=== PATIENT | male | born 1965 | race African-American/Black ===

== ENCOUNTER 2016-11-14 12:23 | Outpatient (CLI) ==
--- NOTE | 2016-11-15 08:07 | DI ---
EXAM: Views of the left foot. HISTORY: Back, pressure ulcer on left foot TECHNIQUE: AP lateral, oblique views of the left foot were obtained. Comparison 06/06/2016. FINDINGS: No definite lytic destructive processes are seen. There is stable appearance of amputati ons of the first, second, third and fourth digits. IMPRESSION: No definite signs of osteomyelitis.
== END 2016-11-14 12:24 | disposition home or self-care (01) ==
LOC: RAD 12:23
PROVIDERS: ATTEND Surgery Plastic and Reconstructive Surgery
DX: L97.522 Non-pressure chronic ulcer of other part of left foot with fat layer exposed (principal); E11.621 Type 2 diabetes mellitus with foot ulcer; M86.8X7 Other osteomyelitis, ankle and foot

== ENCOUNTER 2016-12-20 11:51 | Outpatient (CLI) ==
[2016-12-20 12:32] LABS: BASOPHILS # (AUTO) 0.1 K/uL (0-0.2); BASOPHILS % (AUTO) 0.6 % (0.0-3.0); EOSINOPHILS # (AUTO) 0.4 K/ul (0.0-0.7); EOSINOPHILS % (AUTO) 5.1 % (0.0-7.0); HEMATOCRIT 44.7 % (42.0-52.0); HEMOGLOBIN 14.6 g/dl (14.0-18.0); IMMATURE GRANULOCYTE % (AUTO) 0.4 % (0.0-5.0); LYMPHOCYTES # (AUTO) 3.1 K/uL (0.60-3.4); LYMPHOCYTES % (AUTO) 37.2 (10.0-50.0); MEAN CORPUSCULAR HEMOGLOBIN 26.9 pg (27.0-31.0); MEAN CORPUSCULAR HGB CONC 32.7 (31.8-35.4); MEAN CORPUSCULAR VOLUME 82.3 fl (80.0-94.0); MONOCYTES # (AUTO) 0.6 K/uL (0.4-2.0); MONOCYTES % (AUTO) 7.1 (0-10); NEUTROPHILS # (AUTO) 4.2 K/ul (2.0-6.9); NEUTROPHILS % (AUTO) 49.6; PLATELET COUNT 282 10^3/uL (140-440); RED BLOOD COUNT 5.43 10^6/ul (4.70-6.10); WHITE BLOOD COUNT 8.36 K/ul (4.2-10.2)
[2016-12-20 12:47] LABS: ALBUMIN/GLOBULIN RATIO 1.08; ANION GAP 16.3; BILIRUBIN,TOTAL 0.49 mg/dL (0.00-1.20); BUN/CREATININE RATIO 12.29; CALCIUM 9.3 mg/dL (8.2-10.2); CREATININE 1.87 mg/dL (0.60-1.10); POTASSIUM 4.3 mmol/L (3.5-5.1); TOTAL PROTEIN 7.7 g/dL (6.4-8.2)
--- NOTE | 2016-12-20 13:48 | CT ---
EXAM: CT abdomen pelvis without contrast HISTORY: GERD without esophagitis COMPARISON: CT abdomen pelvis 09/26/2014 TECHNIQUE: Serial axial images of the abdomen pelvis were performed from the lung bases through the inferior pelvis without contrast. These were viewed in multiple planes. FINDINGS: The lung bases are clear. The liver is unremarkable. The gallbladder is normal without pericholecystic fluid or wall thickeni ng with questionable tiny layering gallstone. The adrenal glands are normal. The kidneys demonstra te no hydronephrosis or hydroureter. There are no definitive stones. There is a calcification katey cent to the distal right ureter in the pelvis which is unchanged since 2013. The spleen is unremark able. The pancreas is normal. The stomach is unremarkable in appearance and contains debris. The small bowel in the abdomen and pelvis is unremarkable. There is a fat-containing umbilical morgan ia. The colon is unremarkable. The appendix is normal. The urinary bladder is partially distended . The prostate is normal. There is no free air, free fluid or lymphadenopathy. The lumbar spine i s unremarkable. IMPRESSION: 1. No acute abnormality to account for patient's symptoms. 2. Fat containing umbilical hernia. 3. Questionable tiny gallstone with no evidence of cholecystitis.
== END 2016-12-20 11:52 | disposition home or self-care (01) ==
LOC: RAD 11:51
PROVIDERS: ATTEND Nurse Practitioner Family
DX: E11.9 Type 2 diabetes mellitus without complications (principal); K21.9 Gastro-esophageal reflux disease without esophagitis; R10.84 Generalized abdominal pain
CPT/HCPCS: 36415; 80053; 82150; 83690; 85025

== ENCOUNTER 2016-12-22 09:20 | Outpatient (CLI) ==
--- NOTE | 2016-12-22 10:59 | US ---
EXAM: Ultrasound abdomen limited. HISTORY: Cholelithiasis. COMPARISON: CT 12/20/2016. TECHNIQUE: Abdominal, real time with image documentation: limited (eg, single organ, quadrant, fol low-up) FINDINGS: The liver demonstrates homogeneous echotexture without intrahepatic biliary dilatation. Portal venous flow is normal in direction. The gallbladder is without shadowing stones, wall thicke rachel or pericholecystic fluid. Common duct measures approximately 0.5 cm. Visualized portions of t he pancreas are unremarkable. IMPRESSION: No sonographic abnormality of the liver, gallbladder or biliary system.
== END 2016-12-22 09:21 | disposition home or self-care (01) ==
LOC: RAD 09:20
PROVIDERS: ATTEND Nurse Practitioner Family
DX: K80.20 Calculus of gallbladder without cholecystitis without obstruction (principal)

== ENCOUNTER 2016-12-26 08:13 | Outpatient (CLI) ==
--- NOTE | 2016-12-26 11:00 | NM ---
EXAM: Hepatobiliary scan HISTORY: Cholelithiasis without cholecystitis. COMPARISON: None of this type. Ultrasound 12/22/2016. CT 12/20/2016. PROCEDURE: The patient was injected with 7 mCi of 99mTc mebrofenin intravenously. Images of the abd omen were obtained at 5 min intervals for 30 minutes. Additional images were obtained at 45 and 60 minutes. The patient was then injected with 2 mcg of CCK by slow infusion while images of the gallbl adder were obtained to assess gallbladder contraction. FINDINGS: Sequential images demonstrate normal uptake of tracer into the liver. Activity is seen in the intrahepatic biliary ducts at about 10 minutes. The activity appears in the gallbladder at abo ut 10 minutes. Subsequent images demonstrate increasing activity in the gallbladder. Activity firs t appears in the small bowel at 20 minutes. The gallbladder ejection fraction is 64% . IMPRESSION: 1.Normal hepatobiliary scan. 2.The gallbladder ejection fraction is 64% (normal).
== END 2016-12-26 08:14 | disposition home or self-care (01) ==
LOC: RAD 08:13
PROVIDERS: ATTEND Nurse Practitioner Family
DX: K80.20 Calculus of gallbladder without cholecystitis without obstruction (principal)

== ENCOUNTER 2017-01-24 11:04 | Outpatient (CLI) | payer OTHER ==
[2017-01-24 11:44] LABS: CREATININE 1.6 mg/dL (0.60-1.10)
== END 2017-01-24 11:05 | disposition home or self-care (01) ==
LOC: RAD 11:04
PROVIDERS: ATTEND Surgery Plastic and Reconstructive Surgery
DX: L97.522 Non-pressure chronic ulcer of other part of left foot with fat layer exposed (principal); E11.621 Type 2 diabetes mellitus with foot ulcer; M86.8X7 Other osteomyelitis, ankle and foot
CPT/HCPCS: 36415; 82565

== ENCOUNTER 2017-01-26 12:09 | Outpatient (CLI) | payer OTHER ==
--- NOTE | 2017-01-26 16:53 | MRI ---
EXAM: MRI left foot without and with contrast. HISTORY: Plantar wound. History of osteomyelitis.. TECHNIQUE: Using a local extremity coil on a high field strength magnet multiplanar multisequence M RI performed of the left mid to forefoot both pre and post intravenous gadolinium contrast administr ation. Total of 20 ml of Omniscan administered for the examination.. COMPARISON: MRI left foot 06/14/2016. Three-view plain film examination left foot 11/14/2016. FINDINGS: Alignment of the left mid to forefoot shows no dislocation. Intact Lisfranc ligament fib ers. In correlation there is again noted prior amputation involving the first metatarsal with proximal sh aft remaining.. No lytic bone destruction or decreased T1 signal intensity marrow replacement first metatarsal shaft to suggest acute osteomyelitis at this time. There remains medial overlying area of soft tissue puckering with ulceration and skin induration with likely scar/granulation tissue und erlying. No discrete soft tissue abscess. This area of ulceration measures approximate 23 x 29 mm. Some associated enhancement which may reflect cellulitis. There remains a large area of ulceration/induration over the ball of the midfoot at the second metat arsal phalangeal joint level. This measures approximately 24 x 33 mm with associated overlying band age/dressing material. No discrete drainable soft tissue abscess. This may reflect scar/granulatio n tissue. Amputation involving the left second toe with remaining proximal phalanx again noted. He aled fracture deformity second metatarsal neck with chronic deformity second metatarsal phalangeal j oint. Some of this may be post-traumatic. No underlying definitive bone marrow edema or decreased T1 marrow signal intensity replacement or abnormal enhancement to suggest ongoing osteomyelitis at t his time. Prior amputation left third toe again seen with remaining proximal phalanx. Again deformity third m etatarsal head and neck. This may be post-traumatic and/or postoperative. Prior amputation left fo urth toe again seen with remaining base and shaft of the proximal phalanx. Question post-traumatic/ post operative deformity of the fifth metatarsal as well. Flexion deformity. Again the muscle bulk shows fatty infiltration/replacement with atrophy. Superficial soft tissue ed holly/swelling most evident over the dorsum.. IMPRESSION: Prior forefoot amputations as described. Medial soft tissue ulceration to the left great toe persists. Underlying scar/granulation tissue an d question cellulitis. No discrete drainable soft tissue abscess. No underlying MR evidence to sug gest acute osteomyelitis at this time involving the left great toe. Large area of shallow soft tissue ulceration over the wall of the midfoot centered over the second m etatarsal phalangeal joint level less pronounced in comparison to 06/14/2016. No discrete drainable soft tissue abscess. Overlying dressing material. No underlying MR evidence to suggest acute oste omyelitis at this time involving the left second toe. Muscle bulk fatty infiltration/replacement with atrophy. Superficial soft tissue edema/swelling over the dorsum which may reflect cellulitis.
== END 2017-01-26 12:10 | disposition home or self-care (01) ==
LOC: RAD 12:09
PROVIDERS: ATTEND Surgery Plastic and Reconstructive Surgery
DX: L97.522 Non-pressure chronic ulcer of other part of left foot with fat layer exposed (principal); E11.621 Type 2 diabetes mellitus with foot ulcer; M86.8X7 Other osteomyelitis, ankle and foot

== ENCOUNTER 2017-09-29 11:33 | Emergency (ER) ==
[2017-09-29 11:39] VITALS: BP 154/84; TEMP 97.8; BMI 34.7
--- NOTE | 2017-09-29 12:11 | ED.PDOC ---
General ED Provider: Dr. LOC HERNANDEZ JR Chief Complaint: Shortness of Air Stated Complaint: thinks he is allergic to something; congested coughing short of breath sami arond cats. chest xray not done inhaler from [facility]- albuterol helps using it more frequently ]97.8 66 20 97% 154/84 10. headache Time Seen by Physician: 13:02 Mode of Arrival: Walk-In Information Source: Patient Exam Limitations: No limitations Primary Care [facility] and Triage Documentation Reviewed and Agree: No Review of Systems - Review Of Systems Constitutional: Reports: No symptoms Eyes: Reports: No symptoms Ears, Nose, Mouth, Throat: Reports: No symptoms Respiratory: Reports: Cough, Short of air Cardiac: Reports: No symptoms GI: Reports: No symptoms : Reports: No symptoms Musculoskeletal: Reports: Other (left toe amputation possible continued osteo) Skin: Reports: No symptoms Neurological: Reports: Headache Endocrine: Reports: No symptoms Hematologic/Lymphatic: Reports: No symptoms All Other Systems: Other Past Medical History - Past Medical History Endocrine: Reports: DM 2 Cardiovascular: Reports: None Respiratory: Reports: Bronchitis Hematological: Reports: None Gastrointestinal: Reports: None Genitourinary: Reports: CKD Neuro/Psych: Reports: None Musculoskeletal: Reports: Other Cancer: Reports: None Other Pertinent Past Medical History: chronic osteomyelitis bilat feet - Surgical History General Surgical History: Reports: Orthopedic (left foot toe amputations) - Family History Family History: Reports: Unknown - Social History Smoking Status: Never smoker Hx Substance Use: No Alcohol Screening: Occasionally Physical Exam - Physical Exam Appearance: Well-appearing, Obese Pain Distress: Mild Eyes: MARK, EOMI, Conjunctiva clear ENT: Ears normal, Nose normal, Oropharynx normal Neck: Supple Respiratory: Airway patent, Breath sounds diminished, Rhonchi, Wheezes Cardiovascular: RRR, Pulses normal, No rub, No murmur GI/: Soft, Nontender, No masses, Bowel sounds normal, No Organomegaly Musculoskeletal: Normal strength, ROM intact, No edema, No calf tenderness Skin: Warm, Dry, Normal color Neurological: Sensation intact, Motor intact, Reflexes intact, Cranial nerves intact, Alert, Oriented Psychiatric: Affect appropriate, Mood appropriate Critical Care Note - Critical Care Note Total Time (mins): 0 Course - Course Orders, Labs, Meds: Orders Category Date Time Status CHEST, 2 VIEWS PA & LAT Stat RADS 09/29/17 12:11 Completed Vital Signs: Temp Pulse Resp BP Pulse Ox 09/29/17 11:34 97.8 F 66 20 154/84 H 97 Departure - Departure Time of Disposition: 13:06 Disposition: HOME SELF-CARE Discharge Problem: Reactive airway disease Qualifiers: Asthma severity: moderate Asthma persistence: persistent Asthma complication type: uncomplicated Qualified Code(s): J45.40 - Moderate persistent asthma, uncomplicated Instructions: Reactive Airways Disease (ED) Condition: Good Pt referred to PMD for follow-up: Yes Additional Instructions: will treat for allergies discuss asthma with PMD discuss steroids with diabetes and osteomyelitis may begin oral prednisone- will affect blood sugar recommend antihistamine Benadryl claritin sergio etc Prescriptions: Loratadine [Claritin] 10 mg PO DAILY PRN #30 capsule PRN Reason: Allergy Symptoms Prednisone 20 mg PO DIRECTED #50 tablet Allergies/Adverse Reactions: Allergies levofloxacin [From Levaquin] Allergy (Severe, Verified 09/29/17 11:39) hives, rash lisinopril Allergy (Mild, Verified 09/29/17 11:39) cough banana [Banana] Adverse Reaction (Mild, Verified 09/29/17 11:39) makes him sick to stomach ciprofloxacin [From Cipro] Adverse Reaction (Verified 09/29/17 11:39) ciprofloxacin HCl [From Cipro] Adverse Reaction (Verified 09/29/17 11:39) pcn Allergy (Severe, Uncoded 05/20/14 09:28) hives, can't breath pt to get medical alert necklace cats Allergy (Mild, Uncoded 05/20/14 09:28) affects breathing Home Medications: Ambulatory Orders Dulaglutide [Trulicity] 0.75 mg SQ WEEKLY 04/22/16 Metformin HCl 1,000 mg PO BID 04/22/16 Loratadine [Claritin] 10 mg PO DAILY PRN #30 capsule 09/29/17 Prednisone 20 mg PO DIRECTED #50 tablet 09/29/17
--- NOTE | 2017-09-29 12:39 | DI ---
EXAM: Chest two view, frontal and lateral views. HISTORY: Cough. COMPARISON: 06/14/2016. FINDINGS: The heart size is normal. There is no pulmonary vascular congestion. The lungs are clear . No pleural effusion or pneumothorax is seen. No acute osseous abnormality identified. Since the prior study, there has been no significant interval change. IMPRESSION: No acute cardiopulmonary process.
== END 2017-09-29 13:31 | disposition home or self-care (01) ==
LOC: ED 11:33
DX: J45.40 Moderate persistent asthma, uncomplicated (principal); E11.9 Type 2 diabetes mellitus without complications; M86.9 Osteomyelitis, unspecified
CPT/HCPCS: 99283

== ENCOUNTER 2018-05-23 10:44 | Outpatient (CLI) | payer OTHER ==
--- NOTE | 2018-05-23 12:03 | DI ---
EXAM: Radiographs, right foot HISTORY: Chronic right foot osteomyelitis. COMPARISON: None available. TECHNIQUE: Three views. FINDINGS: There has been amputation of the first and second digits at the level of the proximal inte rphalangeal joints. Old fracture deformity of the distal second metatarsal shaft noted. There are o r erosions on both sides of the third metatarsal phalangeal joint although the margins are corticated , and no periosteal reaction is identified. Moderate spurring seen throughout the dorsal aspect of t he joints of the midfoot. No localized soft tissue abnormality detected. IMPRESSION: 1. Erosions on both sides of the third MTP joint could be due to previous osteomyelitis for inflamma tory arthritis. No radiographic evidence for acute osteomyelitis. Correlate with MRI or bone scan a s warranted. 2. First and second toe amputations. 3. Osteoarthritis.
== END 2018-05-23 10:45 | disposition home or self-care (01) ==
LOC: RAD 10:44
PROVIDERS: ATTEND Emergency Medicine
DX: M86.60 Other chronic osteomyelitis, unspecified site (principal); M79.671 Pain in right foot; I10 Essential (primary) hypertension
CPT/HCPCS: 36415; 85025; 85651

== ENCOUNTER 2018-07-02 09:47 | Outpatient (CLI) | END 2018-07-02 09:48 | disposition home or self-care (01) | LOC: LAB 09:47 | PROVIDERS: ATTEND Emergency Medicine | DX: E11.9 Type 2 diabetes mellitus without complications (principal); N18.9 Chronic kidney disease, unspecified; I10 Essential (primary) hypertension | CPT/HCPCS: 36415; 80053; 80061; 83036; 84443; 85025 ==

== ENCOUNTER 2018-08-08 08:14 | Outpatient (CLI) | END 2018-08-08 08:15 | disposition home or self-care (01) | LOC: LAB 08:14 | PROVIDERS: ATTEND Family Medicine | DX: Z51.81 Encounter for therapeutic drug level monitoring (principal); M86.60 Other chronic osteomyelitis, unspecified site; N18.3 Chronic kidney disease, stage 3 (moderate); I10 Essential (primary) hypertension; K21.9 Gastro-esophageal reflux disease without esophagitis; E55.9 Vitamin D deficiency, unspecified | CPT/HCPCS: 36415; 80053; 80306; 82043; 82306; 85025 ==

== ENCOUNTER 2018-08-24 08:17 | Outpatient (CLI) | payer OTHER | END 2018-08-24 08:18 | disposition home or self-care (01) | LOC: LAB 08:17 | PROVIDERS: ATTEND Family Medicine | DX: D50.9 Iron deficiency anemia, unspecified (principal) | CPT/HCPCS: 36415; 82728; 83540; 83550 ==

== ENCOUNTER 2018-09-21 14:50 | Outpatient (CLI) | payer OTHER | END 2018-09-21 14:51 | disposition home or self-care (01) | LOC: CAR 14:50 | PROVIDERS: ATTEND Family Medicine | DX: Z68.35 Body mass index [BMI] 35.0-35.9, adult (principal) | CPT/HCPCS: 93005; 93010 ==

== ENCOUNTER 2018-12-03 10:37 | Outpatient (CLI) | END 2018-12-03 10:38 | disposition home or self-care (01) | LOC: RHC-LAB 10:37 → FCC-LAB 10:38 | PROVIDERS: ATTEND Family Medicine | DX: E78.5 Hyperlipidemia, unspecified (principal); E11.9 Type 2 diabetes mellitus without complications; D50.9 Iron deficiency anemia, unspecified; Z79.891 Long term (current) use of opiate analgesic | CPT/HCPCS: 36415; 80053; 80061; 83037; 85025 ==

== ENCOUNTER 2019-03-05 15:14 | Outpatient (CLI) | END 2019-03-05 15:15 | disposition home or self-care (01) | LOC: RHC-LAB 15:14 → FCC-LAB 15:15 | PROVIDERS: ATTEND Family Medicine | DX: Z79.891 Long term (current) use of opiate analgesic (principal) | CPT/HCPCS: 80306 ==

== ENCOUNTER 2019-03-06 08:21 | Outpatient (CLI) | END 2019-03-06 08:22 | disposition home or self-care (01) | LOC: RHC-LAB 08:21 → FCC-LAB 08:22 | PROVIDERS: ATTEND Family Medicine | DX: I10 Essential (primary) hypertension (principal); E11.9 Type 2 diabetes mellitus without complications | CPT/HCPCS: 36415; 80053; 82043; 83037; 85025 ==

== ENCOUNTER 2019-03-19 15:16 | Outpatient (CLI) | payer OTHER | END 2019-03-19 15:17 | disposition home or self-care (01) | LOC: RHC-LAB 15:16 → FCC-LAB 15:17 | PROVIDERS: ATTEND Family Medicine | DX: E55.9 Vitamin D deficiency, unspecified (principal); D50.9 Iron deficiency anemia, unspecified; E34.9 Endocrine disorder, unspecified | CPT/HCPCS: 36415; 82306; 82728; 83540; 83550; 83970 ==

== ENCOUNTER 2019-04-04 12:41 | Outpatient (CLI) | END 2019-04-04 12:42 | disposition home or self-care (01) | LOC: RHC-LAB 12:41 → FCC-LAB 12:42 | PROVIDERS: ATTEND Family Medicine | DX: Z51.81 Encounter for therapeutic drug level monitoring (principal); Z79.899 Other long term (current) drug therapy | CPT/HCPCS: 36415; 80306 ==